=== PATIENT | female | born 1995 | race Caucasian/White ===

== ENCOUNTER 2016-04-07 16:19 | Outpatient (CLI) | payer OTHER ==
[~2016-04-07] VITALS: Ht 157.5 cm; Wt 62.0 kg
[~2016-04-07 16:19] MED LIST: ADDERALL5 MG PO; BIRTH CONTROL PILLS; CAMILA0.35 MG PO; CHROMAGEN,1 CAPSULE PO; IBUPROFEN800 MG PO; INTUNIV4 MG PO; MOTRIN600 MG PO; PRENATABS RX T1 EACH PO; PRENATAL COMPL1 EACH PO; SERTRALINE HCL100 MG PO; ZOFRAN ODT4 MG PO; ZOFRAN ODT8 MG PO; [UNRECOGNIZED DRUG - OTHER] PO; birth control
[2016-04-07 16:47] VITALS: BP 112/70
[2016-04-07 17:29] LABS: ADD MIUA? YES; BILIRUBIN NEGATIVE; BLOOD NEGATIVE; COLOR YELLOW ((YELLOW)); GLUCOSE (STRIP) NEGATIVE; KETONES 15; LEUKOCYTES MODERATE; NITRITE NEGATIVE; PROTEIN (STRIP) NEGATIVE; SPECIFIC GRAVITY 1.016 (1.000-1.030)
[2016-04-07 17:37] VITALS: BP 105/64
[2016-04-07 17:39] LABS: BACTERIA 1+ /HPF; CASTS NONE SEEN /LPF; CRYSTALS NONE SEEN; EPITHELIAL CELLS 2+ /HPF; MUCUS NONE SEEN /LPF; PATHOLOGICAL CAST NONE SEEN; RED BLOOD CELLS 0-5 /HPF (0-5); SMALL ROUND CELL NONE SEEN; UCUL ADDED? NO; WHITE BLOOD CELLS 0-5 /HPF (0-5); YEAST-LIKE CELL NONE SEEN
[2016-04-07 19:05] VITALS: BP 110/61
== END 2016-04-07 19:52 | disposition home or self-care (01) ==
LOC: LDRP-OP → 2WEST 16:20 → LDRP-OP 05-21 13:34
PROVIDERS: Advanced Practice Midwife
DX: O26.893 Other specified pregnancy related conditions, third trimester (principal); R10.9 Unspecified abdominal pain; M54.9 Dorsalgia, unspecified; Z3A.36 36 weeks gestation of pregnancy
CPT/HCPCS: 59025; 81003; G0378

== ENCOUNTER 2016-04-26 06:59 | Inpatient (IN) | payer OTHER ==
[~2016-04-26] VITALS: Ht 157.5 cm; Wt 64.1 kg
[2016-04-26] VITALS (26 sets, daily range): BP systolic 88–120; BP diastolic 53–79
[2016-04-26 09:15] LABS: EOSINOPHIL COUNT 0.1 K/uL (0-0.3); HEMATOCRIT 26.5 % (36.0-46.0); IMMATURE GRANULOCYTE (%) 0.4 % (0.0-0.7); LYMPHOCYTE COUNT 2.4 K/uL (1.0-2.8); MCH 25.7 PG (29.0-34.0); MCHC 32.1 G/DL (30.0-36.0); MCV 80.1 FL (83-99); MEAN PLAT.VOLUME 12.4 uM^3 (9.5-12.4); MONOCYTE (%) 8.2 % (3-12); MONOCYTE COUNT 0.6 K/uL (0-0.8); NEUTROPHIL (%) 59.3 % (45-76); NEUTROPHIL COUNT 4.7 K/uL (1.8-6.4); PLATELET COUNT 142 K/uL (156-360); RBC DIS.WIDTH-CV 13.7 % (11.8-14.6); RED BLOOD COUNT 3.31 M/uL (3.80-5.20); WHITE BLOOD COUNT 7.8 K/uL (4.1-10.2)
[2016-04-27 08:27] LABS: EOSINOPHIL (%) 0.6 % (0-5); EOSINOPHIL COUNT 0.1 K/uL (0-0.3); HEMATOCRIT 23.1 % (36.0-46.0); IMMATURE GRANULOCYTE (%) 0.3 % (0.0-0.7); LYMPHOCYTE COUNT 1.9 K/uL (1.0-2.8); MCH 24.7 PG (29.0-34.0); MCHC 31.2 G/DL (30.0-36.0); MCV 79.1 FL (83-99); MEAN PLAT.VOLUME 11.7 uM^3 (9.5-12.4); MONOCYTE (%) 10.9 % (3-12); NEUTROPHIL (%) 66.5 % (45-76); NEUTROPHIL COUNT 5.9 K/uL (1.8-6.4); PLATELET COUNT 128 K/uL (156-360); RBC DIS.WIDTH-CV 13.7 % (11.8-14.6); RBC DIS.WIDTH-SD 39.7 % (39-53); RED BLOOD COUNT 2.92 M/uL (3.80-5.20); WHITE BLOOD COUNT 8.8 K/uL (4.1-10.2)
[2016-04-27 08:28] VITALS: BP 129/65
[2016-04-27 16:05] VITALS: BP 122/73
[2016-04-27 22:37] VITALS: BP 106/66
[2016-04-28 08:30] VITALS: BP 108/65
== END 2016-04-28 12:33 | disposition home or self-care (01) | DRG 775 ==
LOC: LDRP-OP 06:59 → 2WEST 07:00 → LDRP-OP 15:22 → 2WEST 19:50 → LDRP-OP 05-21 20:00
PROVIDERS: Advanced Practice Midwife
PROC: 10907ZC Drainage of Amniotic Fluid, Therapeutic from Products of Conception, Via Natural or Artificial Opening (ICD-10-PCS; principal; 2016-04-26)
PROC: 3E0R3CZ (ICD-10-PCS; principal; 2016-04-26)
PROC: 10E0XZZ Delivery of Products of Conception, External Approach (ICD-10-PCS; principal; 2016-04-26)
PROC: 3E033VJ Introduction of Other Hormone into Peripheral Vein, Percutaneous Approach (ICD-10-PCS; principal; 2016-04-26)
PROC: 00HU33Z Insertion of Infusion Device into Spinal Canal, Percutaneous Approach (ICD-10-PCS; principal; 2016-04-26)
DX: O36.8130 Decreased fetal movements, third trimester, not applicable or unspecified (principal); O99.02 Anemia complicating childbirth; D62 Acute posthemorrhagic anemia; D50.9 Iron deficiency anemia, unspecified; Z3A.39 39 weeks gestation of pregnancy; Z37.0 Single live birth; O99.344 Other mental disorders complicating childbirth; F31.9 Bipolar disorder, unspecified; F41.9 Anxiety disorder, unspecified
CPT/HCPCS: 85025; 86850; 86900; 86901; 86920; C1755; J3010; J7120

== ENCOUNTER 2016-09-04 00:29 | Emergency (ER) | payer OTHER ==
[~2016-09-04] VITALS: Ht 157.5 cm; Wt 53.0 kg
[2016-09-04 01:23] LABS: HEMATOCRIT 35.9 % (36.0-46.0); MCH 22.8 PG (29.0-34.0); MCHC 30.6 G/DL (30.0-36.0); MCV 74.5 FL (83-99); PLATELET COUNT 162 K/uL (156-360); RBC DIS.WIDTH-SD 51.1 % (39-53); RED BLOOD COUNT 4.82 M/uL (3.80-5.20); WHITE BLOOD COUNT 5.3 K/uL (4.1-10.2)
[2016-09-04 01:38] LABS: QUANTITATIVE HCG < 4.0 MIU/ML
[2016-09-04 01:46] LABS: CHLORIDE 109 mEq/L (99-109); POTASSIUM 4.1 mEq/L (3.7-5.4); SODIUM 141 mEq/L (136-147)
[2016-09-04 01:48] LABS: GLUCOSE 101 mg/dL (70-99)
[2016-09-04 01:49] LABS: ANION GAP 8 MEQ/L (2-14)
[2016-09-04 01:50] LABS: TOTAL BILIRUBIN 0.3 mg/dL (0.0-1.0)
[2016-09-04 01:52] LABS: ALKALINE PHOSPHATASE 67 IU/L (3-129); GFR ESTIMATE (CALCULATED) > 59 mL/min/
[2016-09-04 01:53] LABS: UREA NITROGEN (BUN) 16 mg/dL (9-23)
[2016-09-04 02:29] LABS: ADD MIUA? YES; BILIRUBIN NEGATIVE; BLOOD NEGATIVE; COLOR YELLOW ((YELLOW)); GLUCOSE (STRIP) NEGATIVE; KETONES NEGATIVE; LEUKOCYTES NEGATIVE; NITRITE NEGATIVE; PROTEIN (STRIP) 30; SPECIFIC GRAVITY 1.023 (1.000-1.030); UROBILINOGEN 0.2 MG/DL (0.2-1.0)
[2016-09-04 02:32] LABS: BACTERIA RARE /HPF; EPITHELIAL CELLS 1+ /HPF; MUCUS TRACE /LPF; RED BLOOD CELLS 0-5 /HPF (0-5); UCUL ADDED? NO; WHITE BLOOD CELLS 0-5 /HPF (0-5)
[2016-09-04 05:16] VITALS: BP 100/72
== END 2016-09-04 05:17 | disposition home or self-care (01) ==
LOC: EME 00:29
DX: R10.33 Periumbilical pain (principal); R10.30 Lower abdominal pain, unspecified; R30.0 Dysuria; R31.9 Hematuria, unspecified; Z87.442 Personal history of urinary calculi
CPT/HCPCS: 74177; 80053; 81003; 84702; 85027; 99281; 99284

== ENCOUNTER 2016-10-19 18:53 | Emergency (ER) | payer OTHER ==
[~2016-10-19] VITALS: Ht 157.5 cm; Wt 54.7 kg
[2016-10-19] MEDS ORDERED: NAPROXEN500 MG PO (20:31)
[2016-10-19 20:55] VITALS: BP 108/68
== END 2016-10-19 20:56 | disposition home or self-care (01) ==
LOC: EME 18:53
DX: S90.32XA Contusion of left foot, initial encounter (principal); W20.8XXA Other cause of strike by thrown, projected or falling object, initial encounter; Y99.0 Civilian activity done for income or pay
CPT/HCPCS: 73610; 73630; 99281; 99284

== ENCOUNTER 2016-12-10 07:41 | Emergency (ER) | payer OTHER ==
[~2016-12-10] VITALS: Ht 157.5 cm; Wt 55.7 kg
[~2016-12-10 07:41] MED LIST changes: +NAPROXEN500 MG PO
[2016-12-10] MEDS ORDERED: ZITHROMAX250 MG PO (08:32)
[2016-12-10] MEDS ORDERED: ZOFRAN ODT4 MG PO (08:32)
[2016-12-10 08:34] LABS: ADD MIUA? YES; BILIRUBIN NEGATIVE; BLOOD NEGATIVE; GLUCOSE (STRIP) NEGATIVE; KETONES NEGATIVE; LEUKOCYTES NEGATIVE; NITRITE NEGATIVE; PROTEIN (STRIP) NEGATIVE; SPECIFIC GRAVITY 1.019 (1.000-1.030); UROBILINOGEN 0.2 MG/DL (0.2-1.0)
[2016-12-10 08:35] LABS: COLOR LT YELLOW ((YELLOW))
[2016-12-10 08:38] LABS: BACTERIA RARE /HPF; EPITHELIAL CELLS 4+ /HPF; MUCUS TRACE /LPF; RED BLOOD CELLS 0-5 /HPF (0-5); WHITE BLOOD CELLS 0-5 /HPF (0-5)
[2016-12-10 09:30] VITALS: BP 115/72
== END 2016-12-10 09:31 | disposition home or self-care (01) ==
LOC: EME 07:41
PROVIDERS: Nurse Practitioner Family
DX: H66.92 Otitis media, unspecified, left ear (principal); B34.9 Viral infection, unspecified
CPT/HCPCS: 81003; 99281; 99284

== ENCOUNTER 2017-01-27 17:18 | Emergency (ER) | payer OTHER ==
[~2017-01-27] VITALS: Ht 157.5 cm; Wt 58.6 kg
[~2017-01-27 17:18] MED LIST changes: +ZITHROMAX250 MG PO
[2017-01-27 18:06] LABS: HEMATOCRIT 35.5 % (36.0-46.0); MCH 25.7 PG (29.0-34.0); MCHC 31.8 G/DL (30.0-36.0); MCV 80.7 FL (83-99); PLATELET COUNT 163 K/uL (156-360); RBC DIS.WIDTH-CV 14.9 % (11.8-14.6); RBC DIS.WIDTH-SD 43.8 % (39-53); WHITE BLOOD COUNT 4.6 K/uL (4.1-10.2)
[2017-01-27 18:16] LABS: CHLORIDE 107 mEq/L (99-109); POTASSIUM 3.9 mEq/L (3.7-5.4); SODIUM 139 mEq/L (136-147)
[2017-01-27 18:18] LABS: GLUCOSE 96 mg/dL (70-99)
[2017-01-27 18:20] LABS: ANION GAP 8 MEQ/L (2-14); TOTAL BILIRUBIN 0.4 mg/dL (0.0-1.0)
[2017-01-27 18:22] LABS: ALKALINE PHOSPHATASE 59 IU/L (3-129); GFR ESTIMATE (CALCULATED) > 59 mL/min/
[2017-01-27 18:23] LABS: ADD MIUA? YES; BILIRUBIN NEGATIVE; BLOOD NEGATIVE; COLOR YELLOW ((YELLOW)); GLUCOSE (STRIP) NEGATIVE; KETONES NEGATIVE; LEUKOCYTES MODERATE; NITRITE NEGATIVE; PROTEIN (STRIP) 30; SPECIFIC GRAVITY 1.019 (1.000-1.030)
[2017-01-27 18:23] LABS: UREA NITROGEN (BUN) 8 mg/dL (9-23)
[2017-01-27 18:30] LABS: QUANTITATIVE HCG < 4.0 MIU/ML
[2017-01-27 18:57] LABS: RED BLOOD CELLS RARE /HPF (0-5)
[2017-01-27 18:58] LABS: AMORPHOUS URATES CRYSTALS 2+; BACTERIA 1+ /HPF; CASTS NONE SEEN /LPF; CRYSTALS PRESENT; EPITHELIAL CELLS 3+ /HPF; MUCUS RARE /LPF; UCUL ADDED? YES
[2017-01-27] MEDS ORDERED: KEFLEX500 MG PO (20:56)
[2017-01-27 21:02] VITALS: BP 120/79
== END 2017-01-27 21:02 | disposition home or self-care (01) ==
LOC: EME 17:18
PROVIDERS: Physician Assistant
DX: N39.0 Urinary tract infection, site not specified (principal); R10.9 Unspecified abdominal pain; Z87.442 Personal history of urinary calculi; Z97.5 Presence of (intrauterine) contraceptive device; F31.9 Bipolar disorder, unspecified
CPT/HCPCS: 76770; 80053; 81003; 84702; 85027; 87086; 99281; 99284

== ENCOUNTER 2017-03-25 23:20 | Emergency (ER) | payer OTHER ==
[~2017-03-25] VITALS: Ht 157.5 cm; Wt 58.8 kg
[~2017-03-25 23:20] MED LIST changes: +KEFLEX500 MG PO
[2017-03-25 23:32] VITALS: BP 116/75
== END 2017-03-26 02:05 | disposition left against medical advice (07) ==
LOC: EME 23:20
DX: Z53.21 Procedure and treatment not carried out due to patient leaving prior to being seen by health care provider (principal)

== ENCOUNTER 2017-04-03 10:29 | Emergency (ER) | payer OTHER ==
[~2017-04-03] VITALS: Ht 157.5 cm; Wt 57.1 kg
[2017-04-03 13:55] LABS: HEMATOCRIT 38.8 % (36.0-46.0); MCH 26.3 PG (29.0-34.0); MCHC 33.5 G/DL (30.0-36.0); MCV 78.4 FL (83-99); PLATELET COUNT 109 K/uL (156-360); RBC DIS.WIDTH-CV 14.3 % (11.8-14.6); RBC DIS.WIDTH-SD 40.1 % (39-53); RED BLOOD COUNT 4.95 M/uL (3.80-5.20); WHITE BLOOD COUNT 2.8 K/uL (4.1-10.2)
[2017-04-03 14:00] LABS: ALBUMIN 4.5 g/dL (3.2-4.8); CHLORIDE 106 mEq/L (99-109); POTASSIUM 3.5 mEq/L (3.7-5.4); SODIUM 139 mEq/L (136-147)
[2017-04-03 14:02] LABS: GLUCOSE 116 mg/dL (70-99)
[2017-04-03 14:04] LABS: TOTAL BILIRUBIN 0.3 mg/dL (0.0-1.0)
[2017-04-03 14:06] LABS: ALKALINE PHOSPHATASE 69 IU/L (3-129); CREATININE 0.7 mg/dL (0.6-1.3); GFR ESTIMATE (CALCULATED) > 59 mL/min/
[2017-04-03 14:07] LABS: AST (GOT) 24 IU/L (2-34); UREA NITROGEN (BUN) 10 mg/dL (9-23)
[2017-04-03 14:09] LABS: ALT (GPT) 14 IU/L (3-49)
[2017-04-03 15:15] VITALS: BP 102/66
== END 2017-04-03 15:16 | disposition home or self-care (01) ==
LOC: EME 10:29
PROVIDERS: Nurse Practitioner Family
DX: J10.1 Influenza due to other identified influenza virus with other respiratory manifestations (principal); J02.0 Streptococcal pharyngitis; F31.9 Bipolar disorder, unspecified; Z87.442 Personal history of urinary calculi
CPT/HCPCS: 71046; 80053; 85027; 87502; 87651 90; 94640; 99281; 99285; J0561; J1885

== ENCOUNTER 2017-07-11 15:50 | Emergency (ER) | payer OTHER ==
[~2017-07-11] VITALS: Ht 157.5 cm; Wt 64.2 kg
[2017-07-11 16:35] LABS: HEMATOCRIT 37.7 % (36.0-46.0); HEMOGLOBIN 12.7 G/DL (11.9-15.5); MCH 28.2 PG (29.0-34.0); MCHC 33.7 G/DL (30.0-36.0); MCV 83.6 FL (83-99); PLATELET COUNT 175 K/uL (156-360); RBC DIS.WIDTH-CV 12.6 % (11.8-14.6); RBC DIS.WIDTH-SD 37.6 % (39-53); RED BLOOD COUNT 4.51 M/uL (3.80-5.20); WHITE BLOOD COUNT 4.9 K/uL (4.1-10.2)
[2017-07-11 16:46] LABS: ALBUMIN 4.2 g/dL (3.2-4.8)
[2017-07-11 16:47] LABS: CHLORIDE 107 mEq/L (99-109); POTASSIUM 4.1 mEq/L (3.7-5.4); SODIUM 141 mEq/L (136-147)
[2017-07-11 16:49] LABS: GLUCOSE 89 mg/dL (70-99); TOTAL PROTEIN 7.1 g/dL (6.4-8.3)
[2017-07-11 16:51] LABS: TOTAL BILIRUBIN 0.2 mg/dL (0.0-1.0)
[2017-07-11 16:52] LABS: ALKALINE PHOSPHATASE 64 IU/L (3-129)
[2017-07-11 16:53] LABS: CREATININE 0.7 mg/dL (0.6-1.3); GFR ESTIMATE (CALCULATED) > 59 mL/min/
[2017-07-11 16:53] LABS: APPEARANCE CLEAR ((CLEAR)); BILIRUBIN NEGATIVE; BLOOD MODERATE; COLOR YELLOW ((YELLOW)); GLUCOSE (STRIP) NEGATIVE; KETONES NEGATIVE; LEUKOCYTES NEGATIVE; NITRITE NEGATIVE; PROTEIN (STRIP) NEGATIVE; SPECIFIC GRAVITY 1.023 (1.000-1.030); UROBILINOGEN 0.2 MG/DL (0.2-1.0)
[2017-07-11 16:54] LABS: AST (GOT) 16 IU/L (2-34); UREA NITROGEN (BUN) 14 mg/dL (9-23)
[2017-07-11 16:55] LABS: ALT (GPT) 14 IU/L (3-49)
[2017-07-11 16:56] LABS: LIPASE 24 U/L (1.0-51.0)
[2017-07-11 16:57] LABS: BACTERIA NONE SEEN /HPF; EPITHELIAL CELLS 2+ /HPF; MUCUS TRACE /LPF; RED BLOOD CELLS 0-5 /HPF (0-5); UCUL ADDED? NO; WHITE BLOOD CELLS 0-5 /HPF (0-5)
[2017-07-11 17:03] LABS: QUANTITATIVE HCG < 4.0 MIU/ML
[2017-07-11] MEDS ORDERED: ZOFRAN ODT4 MG PO (17:52)
[2017-07-11] MEDS ORDERED: BENTYL10 MG PO (17:52)
[2017-07-11 18:11] VITALS: BP 104/75
== END 2017-07-11 18:13 | disposition home or self-care (01) ==
LOC: EME 15:50
PROVIDERS: Physician Assistant Medical
DX: R10.30 Lower abdominal pain, unspecified (principal); R11.2 Nausea with vomiting, unspecified; F32.9 Major depressive disorder, single episode, unspecified; Z87.442 Personal history of urinary calculi
CPT/HCPCS: 80053; 81003; 83690; 84702; 85027; 99281; 99284

== ENCOUNTER 2017-07-21 11:23 | Emergency (ER) | payer OTHER ==
[~2017-07-21] VITALS: Ht 157.5 cm; Wt 63.7 kg
[~2017-07-21 11:23] MED LIST changes: +BENTYL10 MG PO
[2017-07-21 12:15] LABS: HEMATOCRIT 39.3 % (36.0-46.0); HEMOGLOBIN 13.3 G/DL (11.9-15.5); MCH 28.1 PG (29.0-34.0); MCHC 33.8 G/DL (30.0-36.0); MCV 83.1 FL (83-99); RBC DIS.WIDTH-SD 36.2 % (39-53); RED BLOOD COUNT 4.73 M/uL (3.80-5.20); WHITE BLOOD COUNT 4.7 K/uL (4.1-10.2)
[2017-07-21 12:35] LABS: ALBUMIN 4.4 g/dL (3.2-4.8); CHLORIDE 106 mEq/L (99-109); POTASSIUM 4.1 mEq/L (3.7-5.4); SODIUM 140 mEq/L (136-147)
[2017-07-21 12:37] LABS: GLUCOSE 89 mg/dL (70-99); TOTAL PROTEIN 7.6 g/dL (6.4-8.3)
[2017-07-21 12:39] LABS: TOTAL BILIRUBIN 0.6 mg/dL (0.0-1.0)
[2017-07-21 12:41] LABS: ALKALINE PHOSPHATASE 64 IU/L (3-129); CREATININE 0.7 mg/dL (0.6-1.3); GFR ESTIMATE (CALCULATED) > 59 mL/min/
[2017-07-21 12:42] LABS: UREA NITROGEN (BUN) 10 mg/dL (9-23)
[2017-07-21 12:43] LABS: AST (GOT) 18 IU/L (2-34)
[2017-07-21 12:44] LABS: ALT (GPT) 16 IU/L (3-49)
[2017-07-21 12:50] LABS: QUANTITATIVE HCG < 4.0 MIU/ML
[2017-07-21 12:51] LABS: PLAT.SUFFICIENCY ADEQUATE; PLATELET COUNT 171 K/uL (156-360)
[2017-07-21 14:18] LABS: APPEARANCE SL.HAZY ((CLEAR)); BILIRUBIN NEGATIVE; BLOOD NEGATIVE; COLOR YELLOW ((YELLOW)); GLUCOSE (STRIP) NEGATIVE; KETONES NEGATIVE; LEUKOCYTES NEGATIVE; NITRITE NEGATIVE; PROTEIN (STRIP) NEGATIVE; SPECIFIC GRAVITY 1.014 (1.000-1.030); UROBILINOGEN 0.2 MG/DL (0.2-1.0)
[2017-07-21 14:31] LABS: BACTERIA RARE /HPF; EPITHELIAL CELLS 2+ /HPF; HYALINE CASTS 0-5 /LPF; MUCUS TRACE /LPF; RED BLOOD CELLS 0-5 /HPF (0-5); UCUL ADDED? NO; WHITE BLOOD CELLS 0-5 /HPF (0-5)
[2017-07-21 14:55] VITALS: BP 110/85
== END 2017-07-21 14:55 | disposition left against medical advice (07) ==
LOC: EME 11:23 → RME 11:23
DX: R10.31 Right lower quadrant pain (principal); F31.9 Bipolar disorder, unspecified; F32.9 Major depressive disorder, single episode, unspecified; Z87.442 Personal history of urinary calculi; Z91.5 Personal history of self-harm; Z88.8 Allergy status to other drugs, medicaments and biological substances
CPT/HCPCS: 80053; 81003; 84702; 85027; 99281; 99285; J1885; J2765; J7120

== ENCOUNTER 2017-07-26 00:31 | Emergency (ER) | payer OTHER ==
[~2017-07-26] VITALS: Ht 177.8 cm; Wt 61.1 kg
[2017-07-26 01:13] LABS: MCH 28.2 PG (29.0-34.0); MCHC 34.3 G/DL (30.0-36.0); MCV 82.4 FL (83-99); PLATELET COUNT 152 K/uL (156-360); RBC DIS.WIDTH-CV 12.2 % (11.8-14.6); RBC DIS.WIDTH-SD 36.6 % (39-53); RED BLOOD COUNT 4.25 M/uL (3.80-5.20); WHITE BLOOD COUNT 5.1 K/uL (4.1-10.2)
[2017-07-26 01:27] LABS: ALBUMIN 3.8 g/dL (3.2-4.8); CHLORIDE 110 mEq/L (99-109); POTASSIUM 4.2 mEq/L (3.7-5.4); SODIUM 140 mEq/L (136-147)
[2017-07-26 01:29] LABS: GLUCOSE 97 mg/dL (70-99); TOTAL PROTEIN 6.5 g/dL (6.4-8.3)
[2017-07-26 01:33] LABS: ALKALINE PHOSPHATASE 54 IU/L (3-129); CREATININE 0.6 mg/dL (0.6-1.3); GFR ESTIMATE (CALCULATED) > 59 mL/min/
[2017-07-26 01:34] LABS: UREA NITROGEN (BUN) 10 mg/dL (9-23)
[2017-07-26 01:35] LABS: AST (GOT) 12 IU/L (2-34)
[2017-07-26 01:36] LABS: ALT (GPT) 9 IU/L (3-49); LIPASE 25 U/L (1.0-51.0); TROP-I INTERPRETATION NEGATIVE; TROPONIN-I < 0.01 ng/mL (0.0-0.30)
[2017-07-26 01:50] LABS: TOTAL BILIRUBIN 0.3 mg/dL (0.0-1.0)
[2017-07-26 02:25] LABS: APPEARANCE SL.HAZY ((CLEAR)); BILIRUBIN NEGATIVE; BLOOD NEGATIVE; COLOR YELLOW ((YELLOW)); GLUCOSE (STRIP) NEGATIVE; KETONES NEGATIVE; LEUKOCYTES NEGATIVE; NITRITE NEGATIVE; PROTEIN (STRIP) NEGATIVE; SPECIFIC GRAVITY 1.016 (1.000-1.030); UROBILINOGEN 0.2 MG/DL (0.2-1.0)
[2017-07-26 02:27] LABS: BACTERIA RARE /HPF; EPITHELIAL CELLS 1+ /HPF; MUCUS TRACE /LPF; RED BLOOD CELLS 0-5 /HPF (0-5); UCUL ADDED? NO; WHITE BLOOD CELLS 0-5 /HPF (0-5)
[2017-07-26] MEDS ORDERED: DOXYCYCLINE HY100 MG PO (03:03)
[2017-07-26] MEDS ORDERED: FLAGYL500 MG PO (03:03)
[2017-07-26 03:55] VITALS: BP 114/76
== END 2017-07-26 03:58 | disposition home or self-care (01) ==
LOC: EME 00:31
PROVIDERS: Emergency Medicine
DX: R10.30 Lower abdominal pain, unspecified (principal); N76.0 Acute vaginitis; B96.89 Other specified bacterial agents as the cause of diseases classified elsewhere; R07.2 Precordial pain; F32.9 Major depressive disorder, single episode, unspecified; F98.8 Other specified behavioral and emotional disorders with onset usually occurring in childhood and adolescence; F31.9 Bipolar disorder, unspecified; Z97.5 Presence of (intrauterine) contraceptive device; Z87.442 Personal history of urinary calculi; Z91.5 Personal history of self-harm; Z88.8 Allergy status to other drugs, medicaments and biological substances
CPT/HCPCS: 71045; 74177; 80053; 81003; 81025; 83690; 84484; 85027; 93005; 99281; 99285; J0696; J2765; J7030

== ENCOUNTER 2017-09-07 21:56 | Emergency (ER) | payer OTHER ==
[~2017-09-07] VITALS: Ht 157.5 cm; Wt 65.9 kg
[~2017-09-07 21:56] MED LIST changes: +DOXYCYCLINE HY100 MG PO; +FLAGYL500 MG PO
[2017-09-07 22:07] VITALS: BP 122/89
== END 2017-09-08 00:46 | disposition home or self-care (01) ==
LOC: EME 21:56
PROC: 2W3CX1Z Immobilization of Right Lower Arm using Splint (ICD-10-PCS; principal; 2017-09-07)
DX: S63.501A Unspecified sprain of right wrist, initial encounter (principal); S60.221A Contusion of right hand, initial encounter; V00.121A Fall from non-in-line roller-skates, initial encounter; Y93.51 Activity, roller skating (inline) and skateboarding; Z88.8 Allergy status to other drugs, medicaments and biological substances
CPT/HCPCS: 73110; 73130; 99281; 99283